=== PATIENT | female | born 1975 | race African-American/Black ===

== ENCOUNTER 2016-12-05 09:08 | Emergency (ER) | payer OTHER, MEDICAID ==
[~2016-12-05] VITALS: Ht 165.1 cm; Wt 89.0 kg
[~2016-12-05 09:08] MED LIST: IBUP50DR41 PO
[2016-12-05] MEDS ORDERED: IBUPROFEN 600MG TABLET PO STA (11:15)
[2016-12-05 11:32] VITALS: BP 125/85
[2016-12-05 12:04] LABS: CLARITY URINE CLEAR (CLEAR); COLOR URINE YELLOW (YELLOW); GLUCOSE URINE NEGATIVE (NEGATIVE); KETONES URINE TRACE (NEGATIVE); LEUKOCYTE ESTERASE URINE NEGATIVE (NEGATIVE); NITRITE URINE NEGATIVE (NEGATIVE); OCCULT BLOOD URINE NEGATIVE (NEGATIVE); PH URINE 5.5 (4.5-8.0); PROTEIN URINE NEGATIVE (NEGATIVE); SPECIFIC GRAVITY URINE 1.023 (1.005-1.030)
== END 2016-12-05 15:12 | disposition home or self-care (01) ==
LOC: ER 12:02
DX: S20.212A Contusion of left front wall of thorax, initial encounter (principal); M54.5 Low back pain; R10.9 Unspecified abdominal pain; W18.2XXA Fall in (into) shower or empty bathtub, initial encounter; Y93.E1 Activity, personal bathing and showering; Y99.8 Other external cause status; Y92.89 Other specified places as the place of occurrence of the external cause
CPT/HCPCS: 71101; 72100; 81003; 99285

== ENCOUNTER 2017-06-26 09:52 | Emergency (ER) | payer OTHER, MEDICAID ==
[~2017-06-26] VITALS: Ht 162.6 cm; Wt 109.0 kg
[2017-06-26] MEDS ORDERED: SODIUM CHLORIDE 0.9% 1,000 ML IV ONE (10:06)
[2017-06-26] MEDS ORDERED: METHYLPREDNISOLONE SOD SUCC 125 MG/2 ML VIAL IV STA (10:22)
[2017-06-26] MEDS ORDERED: ALBUTEROL (0.083%) 2.5MG/3ML NEB HHN STA (10:22)
[2017-06-26 10:35] LABS: HEMATOCRIT. 40.9 % (36.0-48.0); HEMOGLOBIN. 14.1 g/dL (12.0-16.0); MEAN CORPUSCULAR HEMOGLOBIN 32.9 pg (28.0-32.0); MEAN CORPUSCULAR VOLUME 95.7 fL (81.0-99.0); MEAN PLATELET VOLUME 7.4 fl (7.4-10.4); PLATELET 302 x1000/uL (130-400); RED BLOOD CELL COUNT 4.27 mill/uL (4.2-5.4); RED CELL DISTRIBUTION WIDTH 12.8 % (11.6-14.6)
[2017-06-26 10:42] LABS: PROTHROMBIN TIME 10.7 sec (9.4-11.6)
[2017-06-26] MEDS ORDERED: KETOROLAC 30MG/ML VIAL IV ONE (10:45)
[2017-06-26 10:47] LABS: CHLORIDE 108 mEq/L (98-107)
[2017-06-26 10:57] LABS: HCG SCREEN NEGATIVE
[2017-06-26 11:06] LABS: CLARITY URINE CLEAR (CLEAR); COLOR URINE YELLOW (YELLOW); KETONES URINE NEGATIVE (NEGATIVE); LEUKOCYTE ESTERASE URINE NEGATIVE (NEGATIVE); NITRITE URINE NEGATIVE (NEGATIVE); OCCULT BLOOD URINE NEGATIVE (NEGATIVE); PH URINE 8.5 (4.5-8.0); PROTEIN URINE NEGATIVE (NEGATIVE); SPECIFIC GRAVITY URINE 1.013 (1.005-1.030); UROBILINOGEN URINE 0.2 E.U./dL (0.2-1.0)
[2017-06-26 11:45] LABS: *AMPHETAMINES SCREEN URINE NEGATIVE (NEGATIVE); *BARBITURATES SCREEN URINE NEGATIVE (NEGATIVE); *BENZODIAZEPINES SCREEN URINE NEGATIVE (NEGATIVE); METHADONE URINE SCREEN NEGATIVE (NEGATIVE); OPIATES URINE SCREEN NEGATIVE (NEGATIVE); PHENCYCLIDINE URINE SCREEN NEGATIVE (NEGATIVE)
[2017-06-26 11:49] LABS: PLATELET ESTIMATE NORMAL
[2017-06-26 12:07] LABS: *COCAINE SCREEN URINE PRESUMTIVE POSITIVE (NEGATIVE); CANNABINOID URINE SCREEN PRESUMTIVE POSITIVE (NEGATIVE)
[2017-06-26 15:51] VITALS: BP 130/88
== END 2017-06-26 15:57 | disposition home or self-care (01) ==
LOC: ER 10:33
DX: J20.9 Acute bronchitis, unspecified (principal); I10 Essential (primary) hypertension; F17.200 Nicotine dependence, unspecified, uncomplicated; F12.10 Cannabis abuse, uncomplicated; Z87.442 Personal history of urinary calculi; Z71.6 Tobacco abuse counseling
CPT/HCPCS: 36415; 71045; 80053; 80305; 81003; 83690; 83880; 84484; 84703; 85025; 85610; 85730; 87804; 93005; 94640; 96361; 96374; 96375; 99285; 99406; J1885; J2930; J7030; J7611; Z7610

== ENCOUNTER 2022-04-13 16:33 | Emergency (ER) | payer MEDICAID, OTHER ==
[~2022-04-13] VITALS: Ht 165.1 cm; Wt 75.0 kg
[2022-04-13] MEDS ORDERED: IBUPROFEN 600MG TABLET PO ONE (21:15)
[2022-04-13] MEDS ORDERED: TETRACAINE 0.5% OPHTH DROPS 4ML BOTHEYE ONE (21:15)
[2022-04-13] MEDS ORDERED: FLUORESCEIN SODIUM 1MG/STRIP BOTHEYE ONE (21:15)
[2022-04-13 21:19] VITALS: BP 147/72
[2022-04-13] MEDS ORDERED: ACYCLOVIR 400 MG TABLET PO ONE (22:00)
[2022-04-13] MEDS ORDERED: IBUP-2029 MT (22:02)
[2022-04-13] MEDS ORDERED: ACYC200C31 MT (22:02)
== END 2022-04-13 23:48 | disposition home or self-care (01) ==
LOC: ER 16:57
DX: B02.39 Other herpes zoster eye disease (principal); F12.10 Cannabis abuse, uncomplicated; Z87.442 Personal history of urinary calculi
CPT/HCPCS: 99283